=== PATIENT | male | born 1995 | race Caucasian/White ===

== ENCOUNTER 2018-05-13 12:16 | Emergency (ER) | payer OTHER ==
[~2018-05-13] VITALS: Ht 180.3 cm; Wt 62.1 kg
--- NOTE | 2018-05-13 12:45 | NUR ---
C/O RASH IN THE GENITAL AREA FOR FEW MONTHS, AND IT COMES AND GO BURNING ON URINATION, ON ATB PO BUT NOT TAKEN. PAIN LEVEL OF 5/10 WHEN URINATING. PT IS AOX4, VSS, RR EVEN AND UNLABORED. SKIN INTACT. DENIES SOB, DIZZINESS, WEAKNESS, N/V. READY FOR EVAL.
--- NOTE | 2018-05-13 12:58 | NUR ---
VELASQUEZ TAMAYO AT BEDSIDE
[2018-05-13 13:03] LABS: APPEARANCE,URINE Clear (CLEAR); BILIRUBIN,URINE Negative (NEGATIVE); BLOOD, URINE Negative Ery/uL (NEGATIVE); COLOR,URINE Yellow (YELLOW); KETONES,URINE Negative (NEGATIVE); LEUKOCYTE ESTERASE ,URINE Negative (NEGATIVE); NITRITE, URINE Negative (NEGATIVE); PROTEIN,URINE Negative (NEGATIVE); UGLUCOSE Negative (NEGATIVE); UROBILINOGEN,URINE 0.2 EU/dL (0.2)
[2018-05-13] MEDS ORDERED: CEFTRIAXONE 500 MG VIAL ONE (13:11)
[2018-05-13] MEDS ORDERED: AZITHROMYCIN 250 MG TABLET ONE (13:11)
[2018-05-13] MEDS ORDERED: LIDOCAINE /MPF 1% VIAL 5 ML VIAL ONE (13:16)
[2018-05-13] MEDS ORDERED: AZITHROMYCIN 250 MG TABLET PO ONE (13:30)
[2018-05-13] MEDS ORDERED: CEFTRIAXONE 500 MG VIAL IM ONE (13:30)
--- NOTE | 2018-05-13 13:42 | NUR ---
Patient discharged to home in stable condition. Written and verbal after care instructions given. Patient verbalizes understanding of instruction.
[2018-05-13 13:55] VITALS: BP 128/86
== END 2018-05-13 13:38 | disposition home or self-care (01) ==
LOC: ER 12:21
DX: L21.9 Seborrheic dermatitis, unspecified (principal); N34.2 Other urethritis; R21 Rash and other nonspecific skin eruption
CPT/HCPCS: 81001; 87086; 87491; 87591; 96372; 99283; A4606; J0696; J3490; Z7610; 81000-TC